=== PATIENT | male | born 1995 | race Caucasian/White ===

== ENCOUNTER 2024-02-14 13:11 | Emergency (ER) | payer SELFPAY ==
[~2024-02-14] VITALS: Ht 182.9 cm; Wt 113.0 kg
[2024-02-14 13:13] VITALS: BP 148/99; PULSE 90; RESP 16; TEMP 98.7; O2SAT 96; O2SAT 98
== END 2024-02-14 17:02 | disposition left against medical advice (07) ==
LOC: ER 13:11 → EDBD 13:11 → ER 17:02
DX: M79.672 Pain in left foot (principal); Z53.21 Procedure and treatment not carried out due to patient leaving prior to being seen by health care provider